=== PATIENT | male | born 1950 | race Caucasian/White ===

== ENCOUNTER 2025-02-08 02:22 | Observation (INO) | payer MEDICARE, OTHER, SELFPAY ==
[2025-02-07 23:39] VITALS: BP 188/100
[2025-02-08] VITALS (10 sets, daily range): BP systolic 144–179; BP diastolic 84–99; BMI 24.4; BMI 23.3
--- NOTE | 2025-02-08 00:21 | ED.GENMED ---
History of Present Illness
General
Chief Complaint: Numbness
Source: patient and spouse
Exam Limitations: none
Time Seen by Provider: 02/08/25 00:07
History of Present Illness
History of Present Illness:
74-year-old male paresthesias to the right arm yesterday. This evening paresthesias also added to the right face. Normally on aspirin but stopped for a colonoscopy next week. No headache no visual issues no double vision some slight equilibrium
issues but also had a tube put in his right ear recently
Past History
Past History
ED Past Medical History: HTN and Other (hiatal hernia)
ED Past Surgical History: Orthopedic, Urological and Other (hernia)
Social History
Tobacco: Former smoker
Alcohol: Occasional
Drug: None
Personal:
Living: with family
Review of Systems
Review of Systems
All Other Systems: Not applicable
Respiratory: Reports no symptoms
Cardiac: Reports no symptoms
Phy Exam
Physical Exam
Physical Exam:
GENERAL: Alert and oriented in no apparent distress
EYE: Orbits normal.
NECK: Supple, no carotid bruit
ENT: Pharynx without erythema
CARDIAC: Regular rate and rhythm without any obvious murmurs.
LUNGS: Clear breath sounds,normal
ABDOMEN: Soft, without focal tenderness or distention
NEUROLOGICAL: Alert and oriented , cranial nerves II through XII intact. Speech normal. Questionable slight poor [id number]-rf-tpcs on the right. No drift. Lower extremity strength normal. [id number]-[id number] normal. Light touch intact. Graphesthesia
intact
SKIN: Warm and dry, no rash or lesion, no discoloration, skin intact.
MUSCULOSKELETAL: No edema,no deformity.Good color
PSYCH: Normal and appropriate interaction.
Course
Orders/Labs/Results
Orders:
Orders
02/08/25 00:07
Electrocardiogram (*1) Stat
Reason for Study: Other
Other Reason for Exam: neuro symptoms
CT Head W/o Iv Contrast Urgent
Comment:
Reason For Exam: Right facial arm paresthesias
Cardiac Monitoring- Treatment ONCE
EKG- Treatment ONCE
IV Insert/Care/Rem.- Treatment PRN
02/08/25 00:22
Basic Metabolic Panel Urgent
Complete Blood Count/With Diff Urgent
Abnormal Lab Results
02/08/25
00:22
RBC 4.45 L 10^6/uL
(4.70-6.10)
MCH 32.4 H pg
(27.0-31.0)
Monocytes % 9.4 H %
(1.7-9.3)
Glucose 102 H mg/dl
(70-99)
02/08/25 00:22
02/08/25 00:22
Vital Signs
Initial and Last Documented VS:
Initial Vital Signs
Temp Pulse Resp BP Pulse Ox
97.7 F 78 20 188/100 94
02/07/25 23:39 02/07/25 23:39 02/07/25 23:39 02/07/25 23:39 02/07/25 23:39
Last Documented Vital Signs
Temp Pulse Resp BP Pulse Ox
97.7 F 70 12 161/94 96
02/07/25 23:39 02/08/25 01:00 02/08/25 01:00 02/08/25 01:00 02/08/25 01:00
MDM/Problems Addressed
Differential Diagnosis Includes:
Focal paresthesias. Etiologies could include a sensory CVA. No indication for thrombolytics. Labs CT scan. Discussed with patient and . Will admit for further workup
*Radiology
Radiology exam reviewed: radiology read reviewed (Negative head CT)
*Pulse Oximetry
SaO2: 94
Oxygen Mode of Delivery: Room air
Patient hypoxic: no
*EKG
Interpreted by ED Provider?: Yes
Interpretation: normal
Comparison EKG: no changes
Heart Rate: 69
Rate: normal
Rhythm: sinus and PAC's
Pyote: normal axis
Interval: normal interval
QRS Pattern: normal QRS
Ischemia: no ischemia
*Bus Operator Interpretation
Rate: normal
Interpretation: normal
Heart Rate: 77
Rhythm: sinus
*Critical Care Note
Total Time (30-74mins, 75-104mins- exclusive of procedures): Not Applicable
ED Attending Note
-
Portions of this chart may have been created with voice recognition software.� Occasional wrong word or��sound alike� substitutions may have occurred due to the inherent limitations of voice recognition software.
Discharge Plan
Departure
Patient Disposition: Admit
Date of Disposition: 02/08/25
Time of Disposition: 01:08
Presentation/result/management discussed w/ accepting MD/DO: Hospitalist
Discharge Problem:
Right sided paresthesias
Prescriptions:
No Action
lisinopril 20 MG tablet
20 mg PO DAILY
aspirin 81 MG tablet,delayed release (DR/EC)
81 mg PO MOWEFR
tadalafil [Cialis] 5 MG tablet
5 mg PO PRN PRN (Reason: prn)
Referrals:
UNKNOWN - PT DOES,NOT KNOW [Family Provider]
Interventions
Interventions:
*Risk Screen - Suicide Last Done: 02/07/25 23:43
*General Assessment Last Done: 02/08/25 00:26
*Neglect/Abuse Screening Last Done: 02/07/25 23:39
*ED- Fall Risk Assessment Last Done: 02/08/25 00:26
*ED COVID-19 Vaccine History Last Done: 02/08/25 00:26
*ED Influenza Vaccine History Last Done: 02/08/25 00:26
ED- Cardiac Assessment Last Done: 02/08/25 00:26
ED- Neurological Assessment Last Done: 02/08/25 00:00
ED- Pulmonary Assessment Last Done: 02/08/25 00:35
Discharge Date and Time
Print Language: GUYANESE
[2025-02-08 00:37] LABS: Hematocrit 41.2 % (39.0-52.0); Hemoglobin 14.4 g/dL (13.0-18.0); Mean Corp Hgb Conc. 35.0 g/dL (33.0-37.0); Mean Corpuscular Volume 92.6 fL (80.0-94.0); Nucleated Red Blood Cells % 0 % (-); Platelet Count 212 10^3/uL (130-400); Red Cell Dist. Width 12.9 % (11.5-14.5)
[2025-02-08 00:42] LABS: Blood Urea Nitrogen 13 mg/dl (9-20); Calcium 9.1 mg/dl (8.4-10.2); Carbon Dioxide 27 mmol/L (22-30); Chloride 106 mmol/L (98-107); Estimated Creatinine Clearance 102 ml/min; Glucose 102 mg/dl (70-99); Potassium 3.8 mmol/L (3.5-5.1); Sodium 136 mmol/L (135-145); eGFR > 60.00
--- NOTE | 2025-02-08 02:27 | HPS.HSE ---
Family Physician
-
Family Physician: NOT KNOW UNKNOWN - PT DOES
Chief Complaint
-
Numbness
History of Present Illness
74-year-old with past medical history significant for hypertension who presents to the emergency department with few hours of numbness.
Patient reported that he was seen yesterday for 1 still yesterday morning when he noticed numbness over the dorsal surface of his right hand. This was not associated with any pins or needle sensation. He denies any weakness in the hands. He
denies any other symptoms. Later on the evening at around 9 PM and noticed numbness with in the lower lip on the right. There was no swelling. There was no pain or tenderness. He denies any facial asymmetry. He denies any slurred speech. He
denies any weakness. He does note mild gait imbalance. He denies feeling lightheaded and denies vertigo.
He denies any family history of stroke, CAD,, multiple sclerosis.
Patient quit smoking several years ago. He takes lisinopril for hypertension. He reports that the takes prophylactic aspirin 81 mg but has not been taking it recently due to bilateral ear tube placements as well as a pending colonoscopy in 1 week.
In the emergency department he was afebrile, blood pressure was 160/90 with a pulse rate of 70 and was satting 96% on room air. ECG shows a normal sinus rhythm with PACs. CBC was unremarkable electrolytes BUN/creatinine were normal. CT of the
head shows no acute abnormalities.
Medical History
Past Medical History
Past Medical History: Reports HTN
Past Surgical History: Reports Orthopedic (Knee surgery)
Social History
Tobacco: Former Smoker
Alcohol: Occasional
Drug: None
Personal:
Living: With Family
Family History
Family History: Not pertinent
Allergies / Home Medications
Allergies reflects when Allergies were last updated in [facility].
Home Medications with original date entered in [facility]
Allergy/Medication List:
Allergies
Allergy/AdvReac Type Severity Reaction Status Date / Time
No Known Allergies Allergy Verified 02/07/25 23:43
Home Medications
aspirin 81 mg tablet,delayed release 81 mg PO MOWEFR 08/13/12
lisinopril 20 mg tablet 20 mg PO DAILY 08/13/12
tadalafil 5 mg tablet (Cialis) 5 mg PO PRN PRN prn 03/17/13
Review of Systems
-
Constitutional: Reports No Symptoms
EENT: Reports No Symptoms
Respiratory: Reports No Symptoms
Cardiac: Reports No Symptoms
Abdomen/GI: Reports No Symptoms
: Reports No Symptoms
Musculoskeletal: Reports No Symptoms
Skin: Reports No Symptoms
Neurological: Reports Numbness
Endocrine: Reports No Symptoms
Hematologic/Lymphatic: Reports No Symptoms
Psych: Reports No Symptoms
Physical Exam
Vital Signs
Vital Signs
Temp Pulse Resp BP Pulse Ox
97.7 F 70 12 161/94 96
02/07/25 23:39 02/08/25 01:00 02/08/25 01:00 02/08/25 01:00 02/08/25 01:00
Physical Exam
General: Well Developed, Well Nourished and No Apparent Distress
HEENT: NormoCephalic, Moist mucous membranes and Atraumatic
Respiratory: Clear
Cardiac: S1/S2 and Regular Rhythm; No Murmur or Rub
GI: Soft, Non Tender, Non Distended and Normal Bowel Sounds; No Organomegaly
Rectal: Deferred by Provider
Musculoskeletal: No Clubbing, No Cyanosis and No Edema
Skin: No Rash
Neuro: AO x 3, No Motor Deficits and Cranial Nerves Intact; No Slurred Speech or Facial Droop
Laboratory Results
-
02/08/25 00:22
02/08/25 00:22
Data Reviewed
-
CT Scan: Report Reviewed by me
Lab Data: Labs Reviewed by me
Old Records: Reviewed
Impression/Plan
-
IMPRESSION:
Patient is a generally healthy 74-year-old with past medical history significant for hypertension who presents to the emergency department with paresthesias of the dorsum of the right hand as well as a right lower lip. Patient reports symptoms have
been going on for several hours now but has been unchanged and due to severity. He denies any other neurological changes except for a mild gait imbalance with walking. Workup in the emergency department for has been unremarkable.
PLAN:
Multifocal numbness -left-sided numbness concerning for a possible lacunar infarct although patient has 1 risk factor of age and hypertension, has otherwise been healthy without known metabolic syndrome.
-Admit to telemetry observation
-Neurochecks every 4 hours
-MRI brain in a.m.
-Will hold off on vascular studies pending MRI and reevaluation of symptoms in few hours.
-Cardiovascular panel, TSH in a.m.
-Neurology consultation
DVT prophylaxis�SCDs
CODE STATUS�full code
[2025-02-08] MEDS: ZESTRIL 20 MG PO ×2 (08:07→19:58)
[2025-02-08] MEDS: ASPIR LOW (ENTERIC COATED) 81 MG PO (08:07)
--- NOTE | 2025-02-08 08:11 | CON.NEURO4 ---
Addendum entered and electronically signed by Oni Painting MD 02/08/25 20:25:
Will follow with you.
Addendum entered and electronically signed by Oni Painting MD 02/08/25 20:12:
The patient will also be on atorvastatin 40 mg daily.
I spent 40 minutes in care of this patient.
Addendum entered and electronically signed by Oni Painting MD 02/08/25 18:08:
I agree with the findings diagnosis and plan of nurse practitioner Roxi Toney. The patient is a 74 years old male who woke up yesterday morning and felt unsteady, and later on he developed right hand numbness involving all the fingers but not
extending to his arm. In the ER his blood pressure on arrival was 188/100. The patient was not a candidate for thrombolytic therapy as as he was outside the time window and also had a low NIH stroke scale. Today, he feels much better and says that
his symptoms have resolved for the most part and he he only has mild tingling in his right hand fingertips and also in an in the right side of his lips.
On neurologic examination, the patient is alert and oriented x 3, speech is clear, the cranial nerves II to XII are grossly intact, the strength is about 5/5 bilaterally in the upper and lower extremities, the sensations are grossly intact and he
does not have any limb ataxia.
The NIH stroke scale today is 0.
The CT of the head did not show any acute intracranial abnormality.
The CTA of the head did not show any major branch vessel occlusion, flow-limiting stenosis, aneurysm or dissection.
MRI of the brain is pending.
The patient likely had a transient ischemic attack secondary to uncontrolled hypertension. The patient will be on the stroke pathway. He will be on aspirin 81 mg daily and clopidogrel 75 mg daily for 21 days, after 21 days, will stop clopidogrel
and we will continue aspirin.
Original Note:
Consultation - Neurology 4
-
CONSULTING PHYSICIAN: Oni Painting MD
REFERRING PHYSICIAN: Maurilio/Dr. Spears
DICTATED BY: EDUARD Pedro
DATE/TIME OF REQUEST: 02/08/25
DATE/TIME OF CONSULTATION: 02/08/25
Reason for Consultation: Right-sided numbness
History of Present Illness:
This is a 74-year-old right-handed male who has presented to the hospital with report of right-sided numbness. Patient reports that yesterday morning (02/07/25) when he woke up he felt mildly 'unsteady.' Later in the morning he reports that he
developed right hand numbness involving all five fingers but not extending up his arm. While walking throughout the day he also notes feeling that he was listing to the right side. Then around 2099 he reports the numbness spread to the right side of
his mouth, prompting him to come to the ER for evaluation. Blood pressure on arrival was 188/100. CT head was obtained and is negative for any acute abnormalities. He was not a candidate for TNK/IAT due to low NIHSS and outside of time window. Today
(02/08/25), patient reports that his symptoms have improved but he still has a tingling sensation in his right hand fingertips and on his right lips. He denies any headache, vision changes, speech/swallow difficulty, and weakness. He reports having
a spinning-type vertigo years ago when he lost hearing in his right ear, his current symptoms do not feel similar to that event. He was previously taking an aspirin 81mg nightly but stopped this several days ago due to upcoming colonoscopy. He is
very active and runs three times a week and weight trains four days per week. He denies any history of TIA or stroke in the past. He does not routinely check his blood pressure at home but notes that when he goes to office appointments it has been
okay.
Past Medical History: HTN, right ear hearing loss, hyperthyroidism, erectile dysfunction
Surgical History: b/l ear tubes placed, knee surgery, hiatal hernia repair, vasectomy
Family History: Reviewed and noncontributory.
Social History: Former smoker.
Allergies: No known allergies.
Home Medications: See below.
Review of Symptoms:
Patient denies any fever, headache, chest pain, shortness of breath, GI or symptoms.
�Per the HPI.�All systems are reviewed negative except above.
Physical Exam:
The patient is afebrile, abdomen is nondistended, breathing is unlabored, skin is warm and dry, no edema.
NIH Stroke Scale:
I performed the NIH stroke scale on the patient on 02/08/25 at 1045. The patient scored 1 points on the NIH stroke scale assessment, which were assigned as follows: See below.
Neurologic Examination:
The patient is awake, alert and oriented x 3. He is able to follow commands and answer questions appropriately. There is no aphasia or dysarthria. On cranial nerve assessment, pupils are 3 mm bilateral, round and reactive to light and
accommodation. Visual bryant are full. Extraocular movements are intact. There is no facial asymmetry. Hearing is absent chronically in his right ear, intact in his left ear to normal conversation volume. Tongue palate and uvula are midline.
Sternocleidomastoid strengths are full bilaterally. Motor strengths are 5/5 bilateral upper and lower extremities on medical research [place] scale. There is no drift or involuntary movement noted. Deep tendon reflexes are 2+ bilateral upper and
lower extremities and Babinski is absent bilaterally. There was no extinction noted on double simultaneous stimulation. Coordination is intact by finger to nose bilaterally.
Lab Results: See below.
Neuro Imaging:
1. CT Head 02/08/25: No acute intracranial abnormality identified.
Differentials for the patient's presentation include:
1. Right-sided paresthesias and dysequilibrium; etiology is possibly a small ischemic stroke, TIA, hypertensive urgency, or metabolic abnormality.
Patient has the following risk factors for their symptoms: HTN, age
IV Tenecteplase/IAT candidacy: He was not a candidate for TNK/IAT due to low NIHSS and outside of time window.
Recommendations:
-Adjust home aspirin 81mg to daily (was taking MWF). Add clopidogrel 75mg daily for 21 days, after 21 days, stop clopidogrel and continue aspirin 81mg daily.
-Goal normotension as symptom onset was >24 hours ago.
-MRI Brain noncontrast pending.
-CTA head/neck pending.
-LDL goal <70. LDL is 107. Initiate atorvastatin 40mg daily.
-Goal normoglycemia, hbA1c is 5.2.
-Ferritin level is low at 27, consider iron replacement.
-NIHSS and neurological checks per unit guidelines.
-Provide patient with a stroke education packet.
-PT/OT evaluations.
-DVT prophylaxis.
Discussed patient care with: Dr. Painting, the patient, patient's spouse
Vital Signs and Labs
-
Vital Signs and Labs:
Vital Signs
Temp Pulse Resp BP Pulse Ox
97.8 F 76 20 168/99 94
02/08/25 08:06 02/08/25 08:07 02/08/25 08:06 02/08/25 08:07 02/08/25 08:06
Lab Results
02/08/25 00:22
02/08/25 00:22
Sodium 136 mmol/L (135-145) 02/08/25 00:22
Potassium 3.8 mmol/L (3.5-5.1) 02/08/25 00:22
BUN 13 mg/dl (9-20) 02/08/25 00:22
Glucose 102 mg/dl (70-99) H 02/08/25 00:22
Calcium 9.1 mg/dl (8.4-10.2) 02/08/25 00:22
LDL Cholesterol, Calc 107 mg/dl 02/08/25 07:39
Vitamin B12 > 1000 pg/ml (239-931) H 02/08/25 07:39
Medications
-
Active Medications
Generic Name Dose Route Start Last Admin
Trade Name Freq PRN Reason Stop Dose Admin
Acetaminophen 650 mg 02/08/25 03:38
Acetaminophen 325 Mg Tablet PO 03/08/25 03:37
Q4HPRN PRN
mild pain/JARVIS/temp> 100.4F
Aspirin 81 mg 02/08/25 08:00 02/08/25 08:07
Aspirin 81 Mg (Enteric Coated) Tablet PO 03/08/25 07:59 81 mg
MoWeFr@0800 ABIGAIL Administration
Bisacodyl 10 mg 02/08/25 03:38
Bisacodyl 10 Mg Rectal Suppository RECTAL 03/08/25 03:37
[id number] PRN
constipation
Lisinopril 20 mg 02/08/25 08:00 02/08/25 08:07
Lisinopril 20 Mg Tablet PO 03/08/25 07:59 20 mg
BID ABIGAIL Administration
Ondansetron HCl 4 mg 02/08/25 03:38
Ondansetron 4 Mg/2 Ml Vial IV 03/08/25 03:37
Q6HPRN PRN
nausea and vomiting
Polyethylene Glycol 17 grams 02/08/25 03:38
Polyethylene Glycol Powder 17 Grams Packet PO 03/08/25 03:37
DAILYPRN PRN
constipation
Senna/Docusate Sodium 1 tablet 02/08/25 03:38
Docusate W/Senna (Marie-Colace) Tablet PO 03/08/25 03:37
BIDPRN PRN
constipation
Sodium Chloride 0 flush 02/08/25 04:00
Sodium Chloride 0.9% (Flush) Syringe IV 03/08/25 03:59
PER PROTOCOL ABIGAIL
Home Medications
�Medication �Instructions �Recorded
aspirin 81 mg tablet,delayed 81 mg PO MOWEFR 08/13/12
release
lisinopril 20 mg tablet 20 mg PO DAILY 08/13/12
tadalafil 5 mg tablet (Cialis) 5 mg PO PRN PRN prn 03/17/13
NIH Stroke Score
Subsequent NIH Scale
Date of Subsequent NIH Scale: 02/08/25
Time of Subsequent NIH Scale: 10:45
NIH Stroke Score
Level of Consciousness: 0 - Alert
LOC Questions: 0-Answers both correctly
LOC Commands: 0-Performs both correctly
Best Horizontal Gaze: 0-Normal
Visual Bryant: 0=Normal, no visual loss
Facial Palsy: 0=Normal, symmetrical
Motor - Right Arm: 0=No drift 10 seconds
Motor - Left Arm: 0=No drift 10 seconds
Motor - Right Le-No drift 5 seconds
Motor - Left Le-No drift 5 seconds
Limb Ataxia: 0-Absent
Sensation: 1-Mild loss
Best Language: 0-No aphasia
Dysarthria: 0-Normal
Extinction and Inattention: 0-No abnormality
NIH Total Score:: 1
Modified Logan (mRS) Score
Modified Logan Scale (mRS): No significant disability. Able to carry out usual activities.
Score: 1
Alteplase Contraindication
Inclusion and Exclusion criteria reviewed: Yes
Reasons for NON-Tx with Thrombolytics ABSOLUTE Exclusions: Greater than 4.5 hrs from onset of sxs
IAT Contraindications: NIHSS < 6
[2025-02-08 08:38] LABS: HDL Cholesterol 61 mg/dl; LDL Cholesterol, Calculated 107 mg/dl; Very Low Density Lipoprotein 11 mg/dl (0-30)
[2025-02-08 08:40] LABS: Glycohemoglobin (HgbA1c) 5.2 % (4.0-5.6)
[2025-02-08 09:43] LABS: Ferritin 27.0 ng/ml (17.9-464.0)
[2025-02-08 09:57] LABS: Vitamin B12 > 1000 pg/ml (239-931)
[2025-02-08] MEDS: PLAVIX 75 MG PO (14:25)
--- NOTE | 2025-02-08 14:55 | W.PN.UPDATE ---
Update Note
Progress Note Update
Nonbillable note
Right facial and hand numbness -still has some symptoms ongoing. CTA head and neck did not show any critical narrowing. MRI brain pending. Continue monitoring on telemetry. Neurology evaluation requested.
--- NOTE | 2025-02-08 17:18 | CM ---
IA completed. SANCHEZ given and placed on the chart. Pt lives with in 2 story home with no steps at the entrance and 13 steps to the full BR o second floor.No hx of DME, SNF, HH home O2. No insecurities identified. Verified PCP, Rx, insurance and
drug coverage
Waiting for MRI to be completed.
PCP: Dr. Christine
Rx, Maxine/ Dawn
Plan: Home with no needs
[2025-02-08] MEDS: MELATONIN 5 MG PO (21:29)
[2025-02-09 03:27] VITALS: BP 154/85
[2025-02-09 07:25] VITALS: BP 150/93
[2025-02-09] MEDS: PLAVIX 75 MG PO (09:09)
[2025-02-09] MEDS: ZESTRIL 20 MG PO (09:10)
[2025-02-09] MEDS: ASPIR LOW (ENTERIC COATED) 81 MG PO (09:10)
[2025-02-09 11:18] VITALS: BP 165/95
--- NOTE | 2025-02-09 14:33 | W.DCSUMMARY ---
Discharge Summary
Discharge Data
Date of Admission: 02/08/25
Date of Discharge: 02/09/25
-
Pending Results: No
Hospital Course
Discharging Physician : Dr Martin Terry
Disposition : To home
Primary care physician : Unknown
Principal Discharge diagnosis :
Acute/subacute left thalamic infarct
Uncontrolled essential hypertension
Chronic Discharge diagnosis :
Hyperlipidemia
Physical examination:
HEENT: moist mucus membrane
Neuro: No motor deficit. no sensory deficit.
Ext: No edema
Hospital Course :
Patient is a 74-year-old male with above-mentioned past medical history came to ER with new onset of right facial and right hand numbness. Patient denied of having any previous history of any neurological symptoms for history. In ER patient had a
CT head which ruled out any hemorrhagic stroke. In light of persistent symptoms patient was admitted for further monitoring with neurology involvement. Patient had a follow-up CTA head and neck which did not show any critical narrowing. An MRI
brain was done which showed left small thalamic stroke. Neurology recommended patient to be maintained on dual antiplatelet therapy aspirin/plan for 21 days followed by aspirin lifelong. Of note patient blood pressure is uncontrolled which patient
attributes to being in hospital setting. Recommended patient to continue monitoring blood pressure with follow-up with primary care physician for further medication adjustment as uncontrolled hypertension increases patient risk of further stroke.
Important imaging findings :
None
Procedure findings :
None
Discharge Plan
-
Patient Disposition: Home (Routine Discharge)
Discharge Diagnosis/Procedures: Thalamic stroke
Condition: Fair
Diet: Low Cholesterol and 2 Gram Sodium
Activity: As tolerated
Driving Restrictions: As prior to admission
Bathing Restrictions: OK to Shower
Referrals:
UNKNOWN - PT DOES,NOT KNOW [Family Provider]
Additional Discharge Medication Instructions: Take Plavix 21 days then stop
Prescriptions:
New
atorvastatin 40 mg Tablet
40 mg PO QPM Qty: 30 2RF
clopidogrel 75 mg Tablet
75 mg PO DAILY Qty: 21 0RF
Continued
lisinopril 20 MG tablet
20 mg PO DAILY
aspirin 81 MG tablet,delayed release (DR/EC)
81 mg PO MOWEFR
tadalafil [Cialis] 5 MG tablet
5 mg PO PRN PRN (Reason: prn)
Discharge Orders:
Discharge Patient (As Directed); Ordered 02/09/25
Ordered By: Martin Terry
Discharge Date and Time
Discharge Date/Time: 02/09/25 12:22
Print Language: FAROESE
== END 2025-02-09 12:22 | disposition home or self-care (01) ==
LOC: 4 EAST ACU 02:22
PROVIDERS: ADMITTING PHYSICIAN Internal Medicine; ATTENDING PHYSICIAN Hospitalist; EMERGENCY PHYSICIAN Emergency Medicine; OTHER PHYSICIAN Psychiatry & Neurology Neurology
DX: I63.9 Cerebral infarction, unspecified (principal); R20.0 Anesthesia of skin; I10 Essential (primary) hypertension; R29.818 Other symptoms and signs involving the nervous system; R26.89 Other abnormalities of gait and mobility; H91.91 Unspecified hearing loss, right ear; I49.1 Atrial premature depolarization; E78.5 Hyperlipidemia, unspecified; Z87.891 Personal history of nicotine dependence; Z79.82 Long term (current) use of aspirin
CPT/HCPCS: 70450; 70496; 70498; 70551; 80048; 80061; 82607; 82728; 83036; 84443; 85025; 93005; 99285; G0378; Q9967